=== PATIENT | male | born 1965 | race Caucasian/White ===

== ENCOUNTER 2019-06-04 13:18 | Emergency (ER) | payer OTHER ==
[~2019-06-04] VITALS: Ht 170.2 cm; Wt 115.0 kg
[2019-06-04] MEDS ORDERED: AMBIEN10 MG PO (13:31)
[2019-06-04] MEDS ORDERED: AMBIEN5 M1 PO (13:31)
[2019-06-04 14:09] VITALS: BP 139/102
== END 2019-06-04 14:09 | disposition home or self-care (01) ==
LOC: ED 13:18
DX: I10 Essential (primary) hypertension (principal); F41.9 Anxiety disorder, unspecified; Z87.891 Personal history of nicotine dependence; Z98.890 Other specified postprocedural states; Z88.0 Allergy status to penicillin

== ENCOUNTER → 2023-05-17 | Outpatient (CLI) | payer BC ==
[~2023-05-17] MED LIST: AMBIEN10 MG PO; AMBIEN5 M1 PO
== END ==
LOC: RAD 15:13
DX: M47.22 Other spondylosis with radiculopathy, cervical region (principal)

== ENCOUNTER → 2023-05-23 | Outpatient (CLI) | payer BC | LOC: RAD 08:49 | DX: R20.2 Paresthesia of skin (principal) ==

== ENCOUNTER 2023-07-12 15:15 | Outpatient (RCR) | payer OTHER | END 2023-07-19 | disposition home or self-care (01) | LOC: PT | DX: M54.02 Panniculitis affecting regions of neck and back, cervical region (principal) ==

== ENCOUNTER 2023-07-20 08:00 | Outpatient (RCR) | payer OTHER | END 2023-08-17 | disposition home or self-care (01) | LOC: PT | DX: M48.02 Spinal stenosis, cervical region (principal) ==

== ENCOUNTER 2023-11-30 12:42 | Emergency (ER) | payer OTHER ==
[~2023-11-30] VITALS: Ht 170.2 cm; Wt 116.8 kg
[2023-11-30] MEDS ORDERED: dilTIAZem 25 MG/5 ML VIAL IV ONE ×2 (13:15→13:45)
[2023-11-30] MEDS ORDERED: NS 1,000 ML IV SCH (13:30)
[2023-11-30 13:33] LABS: BASO # 0.05 K/mm3 (0.02-0.10); EOS # 0.16 K/mm3 (0.04-0.40); HEMATOCRIT 49.5 % (42.0-52.0); HEMOGLOBIN 16.5 g/dL (13.5-18.0); LYMPH# 1.73 K/mm3 (1.50-4.00); MEAN CELL VOLUME 98 fl (78-100); MEAN CORPUSCULAR HEMOGLOBIN 33 pg (27-31); MEAN CORPUSCULAR HGB CONC 33 g/dL (33-37); MEAN PLATELET VOLUME 10.3 fl (7.4-10.4); MONO # 0.72 K/mm3 (0.20-0.80); NEU # 5.13 K/mm3 (1.40-6.50); PLATELET COUNT 193 K/mm3 (130-400); RED BLOOD COUNT 5.04 M/mm3 (4.20-5.60); RED CELL DISTRIBUTION WIDTH 12.9 % (11.5-14.5); WHITE BLOOD COUNT 7.8 K/mm3 (4.8-10.8)
[2023-11-30 13:37] LABS: ALBUMIN 4.5 g/dL (3.5-5.0); SODIUM 141 mmol/L (136-145)
[2023-11-30 13:38] LABS: CALCIUM 10.5 mg/dL (8.3-10.5)
[2023-11-30 13:40] LABS: GLUCOSE 90 mg/dL (75-110); TOTAL PROTEIN 7.7 g/dL (6.4-8.3)
[2023-11-30 13:41] LABS: CARBON DIOXIDE 20 mmol/L (22-29); TOTAL BILIRUBIN 1.2 mg/dL (0.2-1.2)
[2023-11-30 13:45] LABS: AST-SGOT 32 U/L (5-34)
[2023-11-30 13:46] LABS: ALT/SGPT 33 U/L (0-55)
[2023-11-30 13:47] LABS: PROTHROMBIN TIME 11.3 SECONDS (9.0-12.0)
[2023-11-30 13:55] LABS: TROPONIN-I < 0.030 ng/mL (0.00-0.033)
[2023-11-30 16:00] VITALS: BP 114/87
== END 2023-11-30 16:55 | disposition short-term general hospital (02) ==
LOC: ED 12:42
PROVIDERS: Physician Assistant
DX: I48.91 Unspecified atrial fibrillation (principal)
CPT/HCPCS: J1650; J7030

== ENCOUNTER → 2023-12-04 | Outpatient (CLI) | payer OTHER ==
[2023-12-04 12:00] LABS: PROTHROMBIN TIME 19.9 SECONDS (9.0-12.0)
== END ==
LOC: LAB 11:34
PROVIDERS: Registered Nurse
DX: I48.0 Paroxysmal atrial fibrillation (principal)

== ENCOUNTER → 2023-12-27 | Outpatient (CLI) | payer OTHER ==
[2023-12-27 14:32] LABS: PROTHROMBIN TIME 14.8 SECONDS (9.0-12.0)
== END ==
LOC: LAB 13:46
PROVIDERS: Nurse Practitioner Family
DX: I48.0 Paroxysmal atrial fibrillation (principal)

== ENCOUNTER → 2024-01-03 | Outpatient (CLI) | payer OTHER ==
[2024-01-03 10:15] LABS: PROTHROMBIN TIME 35.1 SECONDS (9.0-12.0)
== END ==
LOC: LAB 09:34
PROVIDERS: Nurse Practitioner Family
DX: I48.0 Paroxysmal atrial fibrillation (principal)

== ENCOUNTER → 2024-01-24 | Outpatient (CLI) | payer OTHER ==
[2024-01-24 14:55] LABS: PROTHROMBIN TIME 12.2 SECONDS (9.0-12.0)
== END ==
LOC: LAB 14:08
PROVIDERS: Nurse Practitioner Family
DX: I48.0 Paroxysmal atrial fibrillation (principal)

== ENCOUNTER → 2024-02-01 | Outpatient (CLI) | payer OTHER ==
[2024-02-01 15:29] LABS: PROTHROMBIN TIME 13.5 SECONDS (9.0-12.0)
== END ==
LOC: LAB 14:53
PROVIDERS: Nurse Practitioner Family
DX: I48.0 Paroxysmal atrial fibrillation (principal)